=== PATIENT | female | born 1965 | race Caucasian/White ===

== ENCOUNTER → 2016-07-28 | Day surgery (SDC) | payer BC ==
--- NOTE | 2016-07-20 12:27 | HISTORY & PHYSICAL EXAMINATION ---
DATE OF ADMISSION: 07/28/2016 PREOPERATIVE DIAGNOSES: 1. Cervical polyp. 2. Endometrial mass. HISTORY OF PRESENT ILLNESS: The patient is a 51-year-old white female 0 who presented to me as a new patient noting that over the last 1-1/2 years she has been having irregular periods and skipping months. When she would get it, it will be short, 3 days and heavy, changing protection every 3 hours and wearing double protection. She went on control pills at a young age for very heavy periods. They thought she might have endometriosis, but there was never a definitive diagnosis. She was regular and monthly prior to the last 1-1/2 years. She has had one period in the last 7 months. In May, she had an essentially 2 week period. She has no intermittent spotting. She does have cramping and she has been having a lot of breast pain prior to her periods. She has occasional pain with intercourse with initial presentation notes less desire and more dryness. She is having some hot flashes and feels like her feet are on fire. She generally feels warm. She notes that she is under a lot of stress because of her sister's current diagnosis and battling of cancer. Her last Pap was 1-1/2 years ago and normal. She has no history of abnormal Paps. Onset of intercourse at age 20, admits to 1-5 partners. No history of sexually transmitted diseases. Menarche at age 17 and currently for contraception her partner has a vasectomy. On exam that day a large probable cervical polyp was noted. This measured at least 2.2 cm and I was going to take it off in the office; however, I wanted her to have a workup for the dysfunctional bleeding and on ultrasound there was concern for irregularity of the lining or polyps. She had an SIS, which showed a mass noted within the endometrium. Therefore, I have decided to proceed to the operating room for removal of surgical mass and D\T\C, hysteroscopy with removal of endometrial mass. 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 MEDICATIONS: Includes only fluoxetine. ALLERGIES: No known drug allergies. PAST MEDICAL HISTORY: The patient is healthy. Denies thyroid disease, asthma, heart disease, heart murmur, diabetes or kidney or liver disease. She does have anxiety. PAST SURGICAL HISTORY: Includes eye surgery and wisdom teeth removal. SOCIAL HISTORY: The patient notes that she is a nonsmoker. She has occasional use of alcohol with 2-3 drinks per week. Denies drug use. Is . FAMILY HISTORY: Mother has rheumatoid arthritis and history of a heart valve replacement. Father history of alcoholism. Sister has inflammatory breast cancer. There is no family history of uterine or ovarian cancer. PHYSICAL EXAMINATION: GENERAL: This is a well-developed, well-nourished white female in no acute distress. Height 5 feet 10 inches, weight 139 pounds. VITAL SIGNS: Blood pressure 108/66. NECK: Supple without thyromegaly or lymphadenopathy. CHEST: Clear to auscultation bilaterally. CARDIOVASCULAR: Regular rate and rhythm without murmurs, gallops or rubs. ABDOMEN: Soft, nontender, nondistended, without appreciable masses. EXTREMITIES: Benign. PELVIC: There is normal external female genitalia. Normal Bartholin, urethra and [place] glands. Vagina is pink, moist, with normal rugae. There is no active vaginal bleeding. The cervix has a 2 cm pedunculated polyp protruding from the cervical os and the stalk can be palpated. The cervix itself is multiparous. On bimanual exam, the cervix is soft. The polyp is palpable. The uterus is small, nontender, nondistended and not enlarged. There are no uterine masses palpated. The adnexa are without masses or tenderness. Bladder and urethra are nontender. ASSESSMENT: This is a 51-year-old 0 with a history of dysfunctional bleeding with an endometrial mass and a large cervical polyp. Plan to proceed with dilation and curettage, hysteroscopy and polypectomy as well as excision of cervical polyp. The risks of the procedure were discussed with the patient including risks of anesthesia, bleeding requiring transfusion, infection, poor wound healing, damage to surrounding structures including bowel, bladder, vessels, nerves and ureters with need for further surgery, hospitalization or intervention. Discussed the risk of perforation with need for further intervention involving that. Discussed the risk of any surgery including heart attack, blood clot, stroke or . Questions were asked and answered. Consent was reviewed and signed. Surgery is planned for July 28.
[2016-07-22 08:26] VITALS: Ht 177.8 cm; Wt 63.6 kg
[~2016-07-28] VITALS: Ht 177.8 cm; Wt 63.6 kg
[~2016-07-28] MED LIST: ATROPINE SULFATE 0.1 MG/ML 5ML SYR IV PRN; DEXAMETHASONE SOD INJ 4 MG/ML VIAL ONE; EpHEDrine SULFATE INJ 50 MG/ML AMP IV PRN; FENTANYL CITRATE INJ 50 MCG/1 ML 2 ML VIAL IV PRN; FENTANYL CITRATE INJ 50 MCG/1 ML 2 ML VIAL ONE; FERRIC SUBSULFATE 8 GM VIAL ONE; FLUMAZENIL 0.1 MG/1 ML 10 ML VIAL IV PRN; FLUO20CA35 PO; HYDROmorphone INJ 2 MG/ML SYR/VIAL IV PRN; IBUPROFEN 600 MG TAB PO PRN; KETOROLAC TROMETHAMINE 30 MG/ML VIAL IV. PRN; KETOROLAC TROMETHAMINE 30 MG/ML VIAL ONE; LABETALOL HCL IV 5 MG/ML 20ML IV PRN; LACTATED RINGER'S 1000ML 1,000 ML IV SCH; LIDOCAINE HCL 2% 2 ML VIAL (20MG/ML) ONE; MELA1TAB22 PO; MEPERIDINE HCL 25 MG/ML CARP IV PRN; MIDAZOLAM HCL 1 MG/ML 2ML VIAL ONE; MoRPHine SULFATE 2 MG/ML CARP IV PRN; MoRPHine SULFATE 4 MG/ML 1 ML CARP\\VIAL IV PRN; NALOXONE HCL 0.4 MG/1 ML VIAL/CARP IV PRN; ONDANSETRON INJ 2 MG/ML 2 ML VIAL IV PRN; ONDANSETRON INJ 2 MG/ML 2 ML VIAL ONE; OXYCODONE/ACETAMINOPHEN 5-325 TAB PO PRN; PHENYLEPHRINE 100MCG/ML 5ML SYR IV PRN; PROPOFOL IV EMULSION 10 MG/ML 20 ML VIAL IV ONE; SODIUM CHLORIDE 0.9% 1000ML 1,000 ML IV SCH
--- NOTE | 2016-07-28 12:35 | History & Physical Bridge - [place] ---
H&P Re-Evaluation Bridge Note: I have examined the patient, reviewed the History & Physical and in the interval since the performance of the History & Physical I have noted the following changes of clinical significance: No changes noted
--- NOTE | 2016-07-28 13:18 | [facility] Post Operative Brief Note ---
Immediate Operative Summary Operative Date Jul 28, 2016. Pre-Operative Diagnosis Cervical Mass, Endometrial Polyp Post-Operative Diagnosis same Procedure(s) Performed Dilatation And Curettage, Hysteroscopy removal of Polyp with Myosure; Excision Of Cervical Mass Surgeon Dr. Hanane Bailey Environmental Change Analyst Surgeon(s) 0 Estimated Blood Loss 5cc Findings large, 2cm, exophytic poly of the cervix eminating from 7 o'clock, uterus appears nl, endometrium thin, small polyp in ant valentin removed. Specimens A. Endometrial Curettings and polyp B. Cervical Mass Drains none Anesthesia lma Complication(s) None Disposition Recovery Room / PACU
--- NOTE | 2016-07-28 13:20 | Discharge Instructions ---
Discharge Instructions Visit Reason for Visit: Cervical Polyp, Endometrial Mass Discharge Discharge Diagnosis / Problem: removal of cervial mass and endometrial polyp Discharge Goals Goal(s): Specific goals Activity Recommendations Activity Limitations: per Instructions/Follow-up section Anesthesia . Post Anesthesia Instructions: If you have had General Anesthesia or IV Sedation: * Do not drive today. * Resume driving when surgeon permits. * Do not make important decisions or sign legal documents today. * Call surgeon for: 1. Temperature elevations greater than 101 degrees F. 2. Uncontrollable pain. 3. Excessive bleeding. 4. Persistent nausea and vomiting. 5. Medication intolerance (nausea, vomiting or rash). * For nausea and vomiting use only clear liquids such as: tea, soda, bouillon until nausea subsides, then gradually increase diet as tolerated. * If you have any concerns or questions, call your surgeon's office. If physician is unavailable and it is an emergency, call 911 or go to the nearest emergency room. . Instructions / Follow-Up Instructions / Follow-Up ACTIVITY RECOMMENDATIONS: * Avoid tampons, douching, hot tubs, pools, and intercourse until bleeding has stopped. * May shower as usual. * No strenuous activity for 24-48 hours. After 24-48 hours, you may do anything you feel like doing (driving and sports are okay). SPECIAL CARE INSTRUCTIONS: Special Diet: * Mild nausea may occur in the immediate post-operative period. * Take clear liquids such as tea, cola or bouillon until all nausea has subsided; you may then resume your normal diet. Special Care: * Light bleeding and vaginal spotting can last from a few days to 3-4 weeks. Call your doctor if bleeding becomes heavier than the heaviest part of your period. * Check your temperature twice a day for one week. If it goes above 100.4 degrees Fahrenheit (38.0 Celsius), notify your doctor. * Call your doctor's office for an appointment for 6 weeks after your surgery. FOLLOW-UP VISIT: Call your doctor's office for an appointment for 6 weeks after your surgery. Diet Recommendations Recommended Home Diet: no limitations, resume previous diet Procedures Procedures Performed: Dilatation And Curettage, Hysteroscopy removal of Polyp with Myosure; Excision Of Cervical Mass Pending Studies Studies pending at discharge: no Medical Emergencies . Who to Call and When: Medical Emergencies: If at any time you feel your situation is an emergency, please call 911 immediately. . Non-Emergent Contact Non-Emergency issues call your: Peritoneal Dialysis Registered Nurse . . "Provider Documentation" section prepared by Ida Bailey.
--- NOTE | 2016-07-28 13:24 | Medical Student: [facility] ---
Immediate Operative Summary Operative Date Jul 28, 2016. Pre-Operative Diagnosis Cervical Mass and Endometrial Polyp Post-Operative Diagnosis Cervical Mass and Endometrial Polyp Procedure(s) Performed Dilation and Curretage, Hysteroscopy, Polypectomy with Myosure, Excision of Cervical Mass Surgeon Dr. Bailey Skate Shop Attendant Surgeon(s) None Estimated Blood Loss 5 mL Findings Large mass originating from cervical os into vaginal canal. Small endometrial polyp visualized and removed. Endometrial tissue appears thin. Specimens 1. Cervical Polyp 2. Endometrial Tissue Drains None Anesthesia General Complication(s) None Disposition Recovery Room / PACU
--- NOTE | 2016-07-28 13:56 | Anesthesia Progress Nt - [facility] ---
Anesthesia Post Op Note Date & Time Jul 28, 2016 at 13:56 Vital Signs Pain Intensity: 0 Vital Signs Past 12 Hours Date Time Temp Pulse Resp B/P Pulse Ox O2 Delivery O2 Flow Rate FiO2 07/28/16 13:33 108/69 07/28/16 13:33 108/69 07/28/16 13:29 56 16 100 07/28/16 13:29 61 16 103/58 100 07/28/16 13:29 56 16 100 07/28/16 13:29 61 16 103/58 100 07/28/16 13:24 36.3 52 16 109/57 100 Diffusion Mask 6 07/28/16 13:24 52 18 100 07/28/16 13:24 52 18 07/28/16 13:24 52 18 100 07/28/16 13:24 52 18 07/28/16 11:50 36.6 68 16 107/60 99 Room Air Notes Mental Status: alert / awake / arousable, participated in evaluation Pt Amnestic to Procedure: Yes Nausea / Vomiting: adequately controlled Pain: adequately controlled Airway Patency, RR, SpO2: stable & adequate BP & HR: stable & adequate Hydration State: stable & adequate Anesthetic Complications: no major complications apparent
[2016-07-28 14:10] VITALS: TEMP 36.4
[2016-07-28 14:34] VITALS: BP 106/64; PULSE 58; O2SAT 98
--- NOTE | 2016-07-28 16:43 | OPERATIVE REPORT ---
DATE OF OPERATION: 07/28/2016 PREOPERATIVE DIAGNOSES: 1. Cervical mass. 2. Endometrial mass. POSTOPERATIVE DIAGNOSIS: Same. PROCEDURE: 1. D\T\C, hysteroscopy, removal of endometrial mass with MyoSure. 2. Excision of cervical mass. SURGEON: Dr. Bailey. ANESTHESIA: General per laryngeal mask. ESTIMATED BLOOD LOSS: 5 mL. FLUIDS: 500 mL. URINE OUTPUT: Approximately 100 mL of clear yellow urine drained from the bladder at the end of the procedure. INDICATIONS: The patient presented to my office for workup for dysfunctional uterine bleeding. Large exophytic cervical mass was noted and on SIS a small endometrial mass suspected to be a polyp was noted. FINDINGS: Uterus sounded to 8 cm, dilated to a #23 Hallie dilator. There was a large cervical exophytic cervical mass coming from 5:00 and there was a small endometrial polyp noted in the anterior lower uterine segment at the uterus. Otherwise, the endometrium appeared thin. No other masses noted. Both tubal ostia visualized. COMPLICATIONS: None. DRAINS: None. DISPOSITION: To recovery room in stable condition. OPERATION AND FINDINGS: PROCEDURE: The patient was taken to the operating room where she was identified verbally and by bracelet. She was placed in dorsal supine position where general anesthesia was induced without difficulty. She was then placed in dorsolithotomy position in [facility] stirrups and prepped and draped in normal sterile fashion. Time-out was held identifying correct patient, procedure and positioning. Exam under anesthesia revealed a palpable 2 cm exophytic cervical mass. The uterus was small, midline, mobile and nontender. There were no appreciable adnexal masses or tenderness. Attention was then turned to the perineum. The bladder was drained of urine. A weighted speculum was placed in the posterior vagina. The anterior cervix was grasped with a single tooth tenaculum. The uterus was sounded to 8 cm, dilated to a #23 Hegar dilator. The hysteroscope was introduced into the endocervix the polyp appeared to be emanating just from the internal os. There was not a long stalk for that. It was decided to remove the polyp and this was done by grasping with Jean Carlosis removing the mass with a Bovie electrocautery and the base was attended to with Bovie electrocautery to control bleeding. The hysteroscope was then introduced with the above noted findings. The MyoSure was placed through the MyoSure scope and the polypoid lesion was removed and then curettage was done with MyoSure. The procedure was then terminated. Some AstrinGyn was placed over the base of the cervix where the mass was removed for hemostasis and the procedure was terminated. All sponge, lap and needle counts were correct x2. The patient tolerated the procedure well and was taken to recovery room in stable condition. I attest to the content of the Intraoperative Record and any orders documented therein. Any exceptio ns are noted below.
== END | disposition home or self-care (01) ==
LOC: X.SURG 11:31
PROVIDERS: ATTEND Obstetrics & Gynecology
DX: N84.0 Polyp of corpus uteri (principal); N84.1 Polyp of cervix uteri; Z82.49 Family history of ischemic heart disease and other diseases of the circulatory system; Z80.8 Family history of malignant neoplasm of other organs or systems

== ENCOUNTER → 2017-03-10 | Outpatient (CLI) | payer BC ==
[~2017-03-10] MED LIST changes: -ATROPINE SULFATE 0.1 MG/ML 5ML SYR IV PRN; -DEXAMETHASONE SOD INJ 4 MG/ML VIAL ONE; -EpHEDrine SULFATE INJ 50 MG/ML AMP IV PRN; -FENTANYL CITRATE INJ 50 MCG/1 ML 2 ML VIAL IV PRN; -FENTANYL CITRATE INJ 50 MCG/1 ML 2 ML VIAL ONE; -FERRIC SUBSULFATE 8 GM VIAL ONE; -FLUMAZENIL 0.1 MG/1 ML 10 ML VIAL IV PRN; -HYDROmorphone INJ 2 MG/ML SYR/VIAL IV PRN; -IBUPROFEN 600 MG TAB PO PRN; -KETOROLAC TROMETHAMINE 30 MG/ML VIAL IV. PRN; -KETOROLAC TROMETHAMINE 30 MG/ML VIAL ONE; -LABETALOL HCL IV 5 MG/ML 20ML IV PRN; -LACTATED RINGER'S 1000ML 1,000 ML IV SCH; -LIDOCAINE HCL 2% 2 ML VIAL (20MG/ML) ONE; -MEPERIDINE HCL 25 MG/ML CARP IV PRN; -MIDAZOLAM HCL 1 MG/ML 2ML VIAL ONE; -MoRPHine SULFATE 2 MG/ML CARP IV PRN; -MoRPHine SULFATE 4 MG/ML 1 ML CARP\\VIAL IV PRN; -NALOXONE HCL 0.4 MG/1 ML VIAL/CARP IV PRN; -ONDANSETRON INJ 2 MG/ML 2 ML VIAL IV PRN; -ONDANSETRON INJ 2 MG/ML 2 ML VIAL ONE; -OXYCODONE/ACETAMINOPHEN 5-325 TAB PO PRN; -PHENYLEPHRINE 100MCG/ML 5ML SYR IV PRN; -PROPOFOL IV EMULSION 10 MG/ML 20 ML VIAL IV ONE; -SODIUM CHLORIDE 0.9% 1000ML 1,000 ML IV SCH
--- NOTE | 2017-03-15 09:00 | MAMMOGRAPHY REPORT ---
BILATERAL DIGITAL DIAGNOSTIC MAMMOGRAM TOMOSYNTHESIS WITH CAD AND TARGETED RIGHT ULTRASOUND: 7 CLINICAL HISTORY: The patient reports that she had diffuse bilateral breast pain which subsided after her period ended. She she still notes some pain in the right lateral breast. She denies any palpab le lumps or other complaints. TECHNIQUE: Breast tomosynthesis in addition to standard 2D mammography was performed. Current study was also evaluated with a Computer Aided Detection (CAD) system. Bilateral CC and MLO 2-D and tomosy nthesis images were obtained. COMPARISON: Comparison is made to exams dated: 01/07/2016 mammogram, 01/07/2016 ultrasound, 06/28/2014 ultrasound, 06/28/2014 mammogram, 05/27/2011 mammogram, and 03/19/2010 mammogram - [facility]. BREAST COMPOSITION: The tissue of both breasts is heterogeneously dense, which may obscure small mas ses. FINDINGS: A square marker dorsey the site of most prominent pain in the right upper outer quadrant. T here are no suspicious masses, calcifications, or areas of architectural distortion noted in either b reast mammographically. There has been no significant interval change compared to prior exams. Scat tered bilateral benign-appearing calcifications are not significantly changed. Targeted ultrasound was performed of the area of pain pointed out by the patient, in the right 9:00 b reast. A few scattered anechoic round/oval circumscribed masses are noted in the right 9:00 periareo lar region, some of which contain thin internal septations. The largest measures 6 mm. Findings are consistent with benign cysts. No suspicious solid masses or other suspicious sonographic abnormalit ies are evident. IMPRESSION: ACR BI-RADS CATEGORY 2: BENIGN, TARGETED ULTRASOUND ACR BI-RADS CATEGORY 2: BENIGN No mammographic evidence of malignancy in either breast. A few small benign cysts were seen in the r ight 9:00 breast on ultrasound at the site of the most prominent pain pointed out by the patient. Th ere is no mammographic or targeted sonographic evidence of malignancy. Recommend clinical follow-up for breast pain, and recommend routine bilateral screening mammograms in one year. The patient has been verbally notified of the results. Approximately 10% of breast cancers are not detected with mammography. A negative mammographic report should not delay biopsy if a clinically suggestive mass is present. Kimberly Iqbal M.D. ah/:03/10/2017 11:56:34 Safety Lamp Keeper: Eunice DEL ROSARIO)(Michael), [facility] letter sent: Normal 1/2 BI-RADS Code: ACR BI-RADS Category 2: Benign Ultrasound BI-RADS: ACR BI-RADS Category 2: Benign
== END | disposition home or self-care (01) ==
LOC: C.MAMM 11:16
PROVIDERS: ATTEND Internal Medicine
DX: N64.4 Mastodynia (principal)